=== PATIENT | female | born 1940 | race African-American/Black ===

== ENCOUNTER 2020-06-05 07:25 | Emergency (ER) | payer OTHER, MEDICAID ==
[~2020-06-05] VITALS: Ht 165.1 cm; Wt 84.0 kg
[2020-06-05 11:09] LABS: BASOPHILS % 0.6 % (0.0-2.0); EOSINOPHILS % 2.4 % (0.0-5.0); HEMATOCRIT. 32.7 % (36.0-48.0); LYMPHOCYTES % 20.5 % (20.0-50.0); MEAN CORPUSCULAR HEMOGLOBIN 33.3 pg (28.0-32.0); MEAN CORPUSCULAR VOLUME 98.9 fL (81.0-99.0); MEAN PLATELET VOLUME 8.5 fl (7.4-10.4); MONOCYTES % 7.8 % (2.0-8.0); NEUTROPHILS % 68.7 % (40.0-76.0); PLATELET 204 x1000/uL (130-400); RED BLOOD CELL COUNT 3.31 mill/uL (4.2-5.4); RED CELL DISTRIBUTION WIDTH 14.9 % (11.6-14.6)
[2020-06-05 11:13] LABS: CHLORIDE 100 mEq/L (98-107)
[2020-06-05] MEDS ORDERED: ASPIRIN 325MG TABLET PO ONE (14:30)
[2020-06-05] MEDS ORDERED: ALPRAZOLAM 0.25 MG TABLET PO ONE (15:00)
[2020-06-05 16:15] VITALS: BP 147/57
== END 2020-06-05 16:40 | disposition short-term general hospital (02) ==
LOC: ER 07:46
DX: I21.4 Non-ST elevation (NSTEMI) myocardial infarction (principal); R53.1 Weakness; I12.0 Hypertensive chronic kidney disease with stage 5 chronic kidney disease or end stage renal disease; N18.6 End stage renal disease; Z99.2 Dependence on renal dialysis; I48.91 Unspecified atrial fibrillation
CPT/HCPCS: 36415; 71045; 80053; 83880; 84484; 85025; 93005; 99285

== ENCOUNTER 2021-01-14 04:32 | Inpatient (IN) | payer OTHER, MEDICAID ==
[~2021-01-14] VITALS: Ht 165.1 cm; Wt 80.9 kg
[2021-01-14] MEDS ORDERED: ASPIRIN 81MG TABLET PO ONE ×2 (04:45→06:45)
[2021-01-14] MEDS ORDERED: FAMOTIDINE 20MG/2ML VIAL IV STA (05:16)
[2021-01-14] MEDS ORDERED: ONDANSETRON HCL 4MG/2ML INJ IV STA (05:16)
[2021-01-14] MEDS ORDERED: MORPHINE SULFATE 4 MG/ML CPJ (NOT FOR IM USE) IV STA (05:16)
[2021-01-14 05:24] LABS: BASOPHILS % 0.5 % (0.0-2.0); EOSINOPHILS % 0.1 % (0.0-5.0); HEMATOCRIT. 42.3 % (36.0-48.0); LYMPHOCYTES % 13.9 % (20.0-50.0); MEAN CORPUSCULAR HEMOGLOBIN 31.9 pg (28.0-32.0); MEAN CORPUSCULAR VOLUME 96.4 fL (81.0-99.0); MEAN PLATELET VOLUME 8.6 fl (7.4-10.4); MONOCYTES % 3.2 % (2.0-8.0); NEUTROPHILS % 82.3 % (40.0-76.0); PLATELET 438 x1000/uL (130-400); RED BLOOD CELL COUNT 4.39 mill/uL (4.2-5.4); RED CELL DISTRIBUTION WIDTH 14.6 % (11.6-14.6)
[2021-01-14 05:28] LABS: CHLORIDE 86 mEq/L (98-107)
[2021-01-14] MEDS ORDERED: ONDANSETRON HCL 4MG/2ML INJ IV ONE (08:15)
[2021-01-14] MEDS ORDERED: KCL 10MEQ/50ML PREMIX 50 ML IV ONE (08:15)
[2021-01-14] MEDS ORDERED: SODIUM CHLORIDE 0.9% 250 ML IV ONE (09:15)
[2021-01-14] MEDS ORDERED: PIPERACILLIN/TAZ 3.375G PREMIX 50 ML IV ONE (09:15)
[2021-01-14 10:51] VITALS: BP 129/56
[2021-01-14] MEDS ORDERED: ALPR0.25 PO (11:47)
[2021-01-14] MEDS ORDERED: ATOR20TA PO (11:47)
[2021-01-14] MEDS ORDERED: TRAZ-251 PO (11:47)
[2021-01-14] MEDS ORDERED: CINA60 PO (11:47)
[2021-01-14] MEDS ORDERED: MIDO5TAB4 PO (11:47)
[2021-01-14] MEDS ORDERED: OMEP20TA2 PO (11:47)
[2021-01-14] MEDS ORDERED: HYDR-4346 PO (11:47)
[2021-01-14] MEDS ORDERED: APIX5TAB PO (11:47)
[2021-01-14 12:00] VITALS: BP 129/56
[2021-01-14] MEDS ORDERED: ENOXAPARIN 30MG/0.3ML SYR SUBCUT SCH (12:00)
[2021-01-14] MEDS: PANTOPRAZOLE SODIUM 40 MG/VIAL IV SCH (12:42)
[2021-01-14] MEDS: ONDANSETRON HCL 4MG/2ML INJ IV PRN ×2 (12:42→18:42)
[2021-01-14] MEDS: SODIUM CHLORIDE 0.9% 1,000 ML IV SCH (12:43)
[2021-01-14] MEDS: MORPHINE SULFATE 2 MG/ML CPJ (NOT FOR IM USE) IV PRN ×3 (12:43→22:29)
[2021-01-14 16:00] VITALS: BP 95/40
[2021-01-14] MEDS ORDERED: ENOXAPARIN 60MG/0.6ML SYR SUBCUT NR (16:15)
[2021-01-14 20:00] VITALS: BP 96/35
[2021-01-15] VITALS (7 sets, daily range): BP systolic 94–122; BP diastolic 33–55
[2021-01-15] MEDS: ONDANSETRON HCL 4MG/2ML INJ IV PRN ×2 (03:09→13:02)
[2021-01-15 06:18] LABS: INR 1.1; PROTHROMBIN TIME 11.6 sec (9.6-11.0)
[2021-01-15 06:56] LABS: BASOPHILS % 0.3 % (0.0-2.0); EOSINOPHILS % 0.1 % (0.0-5.0); HEMATOCRIT. 36.4 % (36.0-48.0); HEMOGLOBIN. 12.4 g/dL (12.0-16.0); LYMPHOCYTES % 15.8 % (20.0-50.0); MEAN CORPUSCULAR HEMOGLOBIN 32.6 pg (28.0-32.0); MEAN CORPUSCULAR VOLUME 95.8 fL (81.0-99.0); MEAN PLATELET VOLUME 9.2 fl (7.4-10.4); MONOCYTES % 10.5 % (2.0-8.0); NEUTROPHILS % 73.3 % (40.0-76.0); PLATELET 317 x1000/uL (130-400); RED CELL DISTRIBUTION WIDTH 14.2 % (11.6-14.6)
[2021-01-15] MEDS: SODIUM CHLORIDE 0.9% 1,000 ML IV SCH (08:32)
[2021-01-15] MEDS: PANTOPRAZOLE SODIUM 40 MG/VIAL IV SCH (08:32)
[2021-01-15] MEDS ORDERED: ENOXAPARIN 80MG/0.8ML SYR SUBCUT SCH (09:00)
[2021-01-15] MEDS: MORPHINE SULFATE 2 MG/ML CPJ (NOT FOR IM USE) IV PRN ×2 (12:57→21:11)
[2021-01-15 14:10] LABS: HEPATITIS B SURFACE ANTIGEN NEGATIVE
[2021-01-15 14:39] LABS: HEPATITIS A AB IGM NEGATIVE (NEGATIVE)
[2021-01-16 00:48] VITALS: BP 112/47
[2021-01-16 04:00] VITALS: BP 125/87
[2021-01-16] MEDS: ONDANSETRON HCL 4MG/2ML INJ IV PRN (04:06)
[2021-01-16 04:24] VITALS: BP 131/46
[2021-01-16 06:31] VITALS: BP 131/46
[2021-01-16] MEDS: MORPHINE SULFATE 2 MG/ML CPJ (NOT FOR IM USE) IV PRN (06:31)
== END 2021-01-16 08:20 | disposition short-term general hospital (02) | DRG 388 ==
LOC: ER 04:32 → CANBEDREQ 08:58 → 5WST 09:15 → ENRESERV 09:53
PROVIDERS: ADMIT Internal Medicine Nephrology; ATTEND Internal Medicine Nephrology
PROC: 02HV33Z Insertion of Infusion Device into Superior Vena Cava, Percutaneous Approach (ICD-10-PCS; 2021-01-14)
PROC: B548ZZA Ultrasonography of Superior Vena Cava, Guidance (ICD-10-PCS; 2021-01-14)
PROC: 5A1D70Z Performance of Urinary Filtration, Intermittent, Less than 6 Hours Per Day (ICD-10-PCS; principal; 2021-01-15)
PROC: 0D9670Z Drainage of Stomach with Drainage Device, Via Natural or Artificial Opening (ICD-10-PCS; 2021-01-15)
DX: K56.609 Unspecified intestinal obstruction, unspecified as to partial versus complete obstruction (principal); N18.6 End stage renal disease; E87.1 Hypo-osmolality and hyponatremia; E87.2 Acidosis; I12.0 Hypertensive chronic kidney disease with stage 5 chronic kidney disease or end stage renal disease; E87.6 Hypokalemia; E87.8 Other disorders of electrolyte and fluid balance, not elsewhere classified; I48.91 Unspecified atrial fibrillation; J45.909 Unspecified asthma, uncomplicated; Z82.49 Family history of ischemic heart disease and other diseases of the circulatory system; Z90.710 Acquired absence of both cervix and uterus; Z99.2 Dependence on renal dialysis; Z88.8 Allergy status to other drugs, medicaments and biological substances
CPT/HCPCS: 36415; 71045; 74018; 74176; 76770; 76937; 80048; 80053; 82962; 83036; 83605; 83880; 84484; 85025; 86705; 86709; 86803; 87340; 93005; 99291; C1725; C9113; J1650; J2270; J2405; J2543; J3480; J3490; J7030; J7040; J7050; A4315

== ENCOUNTER 2022-02-21 22:36 | Emergency (ER) | payer OTHER, MEDICAID ==
[~2022-02-21] VITALS: Ht 170.2 cm; Wt 73.0 kg
[~2022-02-21 22:36] MED LIST: ALPR0.25 PO; APIX5TAB PO; ATOR20TA PO; CINA60 PO; HYDR-4346 PO; MIDO5TAB4 PO; OMEP20TA23 PO; TRAZ-251 PO
[2022-02-21 23:35] LABS: CHLORIDE 98 mEq/L (98-107)
[2022-02-21 23:41] LABS: BASOPHILS % 0.4 % (0.0-2.0); HEMATOCRIT. 32.2 % (36.0-48.0); HEMOGLOBIN. 10.2 g/dL (12.0-16.0); LYMPHOCYTES % 18.7 % (20.0-50.0); MEAN CORPUSCULAR HEMOGLOBIN 31.5 pg (28.0-32.0); MEAN CORPUSCULAR VOLUME 98.8 fL (81.0-99.0); MEAN PLATELET VOLUME 8.5 fl (7.4-10.4); MONOCYTES % 10.5 % (2.0-8.0); NEUTROPHILS % 64.4 % (40.0-76.0); PLATELET 262 x1000/uL (130-400); RED BLOOD CELL COUNT 3.26 mill/uL (4.2-5.4); RED CELL DISTRIBUTION WIDTH 22.2 % (11.6-14.6)
[2022-02-21] MEDS ORDERED: KCL 20MEQ/100ML PREMIX 100 ML IV SCH (23:45)
[2022-02-22] MEDS ORDERED: POTASSIUM CHLORIDE INJ 40 MEQ in DEXT 5% WATER 250 ML IV ONE ×2
[2022-02-22] MEDS ORDERED: ASPIRIN 325MG EC TABLET PO NR (01:45)
[2022-02-22] MEDS ORDERED: FUROSEMIDE 40MG/4ML VIAL IVP NR (02:15)
[2022-02-22 04:42] VITALS: BP 119/51
== END 2022-02-22 05:01 | disposition short-term general hospital (02) ==
LOC: ER 22:36
DX: E87.6 Hypokalemia (principal); M79.661 Pain in right lower leg; Z20.822 Contact with and (suspected) exposure to COVID-19; I48.91 Unspecified atrial fibrillation; I12.0 Hypertensive chronic kidney disease with stage 5 chronic kidney disease or end stage renal disease; N18.6 End stage renal disease; Z99.2 Dependence on renal dialysis; Z86.711 Personal history of pulmonary embolism; Z87.19 Personal history of other diseases of the digestive system; Z79.01 Long term (current) use of anticoagulants; Z79.899 Other long term (current) drug therapy
CPT/HCPCS: 36415; 71045; 80053; 83880; 84484; 85025; 87426; 93005; 93970; 96365; 96366; 96375; 99285; J1940; J3480; J7060